=== PATIENT | female | born 1980 | race Caucasian/White ===

== ENCOUNTER 2019-02-09 08:32 | Day surgery (SDC) | payer OTHER ==
[2019-02-09] MEDS ORDERED: PROPOFOL 60 ML (10:22)
[2019-02-09] MEDS ORDERED: LIDOCAINE 2% (SDV) 5 ML INJ (10:22)
== END 2019-02-09 12:47 | disposition home or self-care (01) ==
LOC: GIL 08:32
DX: R19.4 Change in bowel habit (principal); K64.8 Other hemorrhoids; K29.60 Other gastritis without bleeding; I10 Essential (primary) hypertension; E78.5 Hyperlipidemia, unspecified; E11.9 Type 2 diabetes mellitus without complications
CPT/HCPCS: 43239; 84703; 88305